=== PATIENT | female | born 1970 | race Caucasian/White ===

== ENCOUNTER 2017-04-05 19:13 | Emergency (ER) | payer OTHER ==
[~2017-04-05] VITALS: Ht 162.6 cm; Wt 131.8 kg
[~2017-04-05 19:13] MED LIST: ALBU8HFA IH; AMIT10TA6 PO
[2017-04-05 19:25] VITALS: BP 123/76
[2017-04-05 20:15] LABS: GLUCOSE,POINT OF CARE 91 MG/DL (70-110)
== END 2017-04-05 20:45 | disposition left against medical advice (07) ==
LOC: EMS 19:15
DX: R51 Headache (principal); Z53.21 Procedure and treatment not carried out due to patient leaving prior to being seen by health care provider
CPT/HCPCS: 82962

== ENCOUNTER 2019-11-17 20:17 | Emergency (ER) | payer OTHER ==
[~2019-11-17] VITALS: Ht 167.6 cm; Wt 118.2 kg
[~2019-11-17 20:17] MED LIST changes: -AMIT10TA6 PO; +SERT50TA12 PO
[2019-11-17] MEDS ORDERED: ACETAMINOPHEN 500 MG TABLET PO ONE (22:45)
[2019-11-17] MEDS ORDERED: LIDOCAINE 1% 10 ML VIAL INJ ONE (22:45)
[2019-11-18] MEDS ORDERED: PERTUSS(ACELL),DIPH,TET VAC/PF 0.5 ML VIAL IM ONE (00:30)
[2019-11-18] MEDS ORDERED: KETOROLAC TROMETHAMINE 30 MG/ML VIAL IM ONE (02:15)
[2019-11-18 02:58] VITALS: BP 141/87
== END 2019-11-18 03:12 | disposition home or self-care (01) ==
LOC: EMS 20:17
DX: S01.511A Laceration without foreign body of lip, initial encounter (principal); W19.XXXA Unspecified fall, initial encounter; Y93.89 Activity, other specified; Y92.89 Other specified places as the place of occurrence of the external cause; Y99.8 Other external cause status
CPT/HCPCS: 12011; 70450; 70486; 73564 ×2; 90471; 90715; 96372; 99285; J1885; J3490